=== PATIENT | female | born 1955 | race Caucasian/White ===

== ENCOUNTER 2017-04-09 21:53 | Inpatient (IN) | payer BC, OTHER ==
[~2017-04-09] VITALS: Ht 165.1 cm; Wt 99.8 kg
[2017-04-09] MEDS ORDERED: ONDANSETRON ODT 4 MG TAB.RAPDIS PO ONE (22:30)
[2017-04-09] MEDS ORDERED: MORPHINE SULFATE 2 MG/ML DISP.SYRIN. IM ONE (22:45)
[2017-04-09] MEDS ORDERED: CONTRAST GIVEN MC PRN (22:45)
[2017-04-09] MEDS ORDERED: IV NORMAL SALINE 1,000ML 1,000 ML IV ONE (23:00)
[2017-04-09] MEDS ORDERED: IOHEXOL 300 MG/ML 75 ML VIAL. IV ONE (23:00)
[2017-04-09] MEDS ORDERED: MORPHINE SULFATE 2 MG/ML DISP.SYRIN. IV ONE (23:00)
--- NOTE | 2017-04-09 23:48 | PHYS DOC ---
Adult General Chief Complaint Chief Complaint: ABDOMINAL PAIN HPI HPI 61-year-old female with a history of abdominal aortic aneurysm treated surgically, also with bowel resection history, multiple subsequent bowel obstructions. Patient now presents to the emergency department complaining of pain and nausea. She thinks she may have another bowel obstruction. Onset of pain was this evening. She has no fevers chills sweats or shaking chills. Patient always has loose stool but she feels she has decreased stool output this evening. Her pain is in the mid abdomen this report some mild distention .no hematemesis and no black or bloody stool. Review of Systems Review of Systems Constitutional: Denies fever or chills [] Eyes: Denies change in visual acuity, redness, or eye pain [] HENT: Denies nasal congestion or sore throat [] Respiratory: Denies cough or shortness of breath [] Cardiovascular: No additional information not addressed in HPI [] GI: Denies abdominal pain, nausea, vomiting, bloody stools or diarrhea [] : Denies dysuria or hematuria [] Musculoskeletal: Denies back pain or joint pain [] Integument: Denies rash or skin lesions [] Neurologic: Denies headache, focal weakness or sensory changes [] Endocrine: Denies polyuria or polydipsia [] Current Medications Current Medications Current Medications Medications (Trade) Dose Ordered Sig/Orlin Start Time Stop Time Status Last Admin Dose Admin Info (Do NOT chart on this entry -- for MONITORING) 1 each PRN DAILY PRN 04/09/17 22:45 04/11/17 22:44 Iohexol (Omnipaque 300 Mg/ml) 75 ml 1X ONCE 04/09/17 23:00 04/09/17 23:01 DC Morphine Sulfate (Morphine 2mg Syringe) 2 mg 1X ONCE 04/09/17 22:45 04/09/17 22:57 DC 04/09/17 22:46 2 MG Morphine Sulfate (Morphine 4mg Syringe) 4 mg 1X ONCE 04/10/17 00:00 04/10/17 00:01 Ondansetron HCl (Zofran Odt) 4 mg 1X ONCE 04/09/17 22:30 04/09/17 22:43 DC 04/09/17 22:37 4 MG Sodium Chloride 1,000 ml @ 1,000 mls/hr 1X ONCE 04/09/17 23:00 04/09/17 23:59 Allergies Allergies Allergies Coded Allergies Type Severity Reaction Last Updated Verified No Known Drug Allergies 04/09/17 No Physical Exam Physical Exam Older middle-aged female mildly uncomfortable appearing but in no acute distress supple neck clear lungs regular rate and rhythm no tachycardia mild diffuse mid abdominal tenderness without guarding or rebound no mass or megaly appreciated. Unremarkable bowel sounds. Normal extremities with no tenderness or asymmetry. No CVA tenderness Constitutional: Well developed, well nourished, non-toxic appearance. [] HENT: Normocephalic, atraumatic, bilateral external ears normal, oropharynx moist, no oral exudates, nose normal. [] Eyes: PERRLA, EOMI, conjunctiva normal, no discharge. [] Neck: Normal range of motion, no tenderness, supple, no stridor. [] Cardiovascular:Heart rate regular rhythm, no murmur [] Lungs & Thorax: Bilateral breath sounds clear to auscultation [] Abdomen: As above Skin: Warm, dry, no erythema, no rash. [] Back: No tenderness, no CVA tenderness. [] Extremities: No tenderness, no cyanosis, no clubbing, ROM intact, no edema. [] Neurologic: Alert and oriented X 3, normal motor function, normal sensory function, no focal deficits noted. [] Psychologic: Affect normal, judgement normal, mood normal. [] Current Patient Data Vital Signs Vital Signs Date Time Temp Pulse Resp B/P (MAP) Pulse Ox O2 Delivery O2 Flow Rate FiO2 04/09/17 22:46 22 98 Room Air EKG EKG [] Radiology/Procedures Radiology/Procedures CT of the abdomen and pelvis pending[] Course & Med Decision Making Course & Med Decision Making Pertinent Labs and Imaging studies reviewed. (See chart for details) Signs and symptoms consistent with possible bowel obstruction in a patient with a history of multiple prior episodes. Patient hemodynamically stable. Analgesia administered. Patient very difficult IV stick and multiple attempts were made. CT abdomen and pelvis will be done without contrast well continuing to obtain access. If unsuccessful will place right humeral head intraosseous line. 20-gauge IV obtained in left before meals which flushed well without infiltration. Labs noncontrast CT results pending analgesia administered patient clinically stable. CT result obtained 20 minutes after midnight with diagnosis of small bowel obstruction. Case and details promptly discussed with patient's primary care doctor, Dr. Thacker. He is aware of history and findings and requests admission to his service here at [facility]'s inpatient status. He will follow patient clinically overnight and determine whether acute surgical intervention is indicated and orchestrate transfer for surgical consultation and treatment at the appropriate time if necessary. [] Dragon Disclaimer Dragon Disclaimer This chart was dictated in whole or in part using Voice Recognition software in a busy, high-work load, and often noisy Emergency Department environment. It may contain unintended and wholly unrecognized errors or omissions. Departure Departure: Impression: Primary Impression: Abdominal pain Additional Impression: Small bowel obstruction Disposition: ADMITTED INPATIENT Condition: STABLE Referrals: CHANTE THACKER MD (PCP) Problem Qualifiers MARLON JO MD Apr 09, 2017 23:48
--- NOTE | 2017-04-09 23:50 | RAD ---
PQRS Compliance Statement: One or more of the following individualized dose reduction techniques were utilized for this examination: 1. Automated exposure control 2. Adjustment of the mA and/or kV according to patient size 3. Use of iterative reconstruction technique CT ABDOMEN PELVIS WO CONTRAST Clinical Indication: Abdomen pain, nausea today. Hx: Appendectomy, aortic abdominal aneurysm rupture and repair in 1996, multiple bowel obstructions with last in 2006. Comparison: None. Technique: Helical CT imaging of the abdomen and pelvis is performed without IV or oral contrast. Findings: Evaluation of solid organs and bowel is limited without oral and IV contrast, decreasing sensitivity for detection of pathology. Minimal scarring or atelectasis in the lower lobes. Cardiac size normal. Cholelithiasis. Liver, spleen, pancreas, adrenal glands, abdominal aorta, and kidneys are normal. Stomach unremarkable. The distal colon is decompressed. There is moderate colon diverticulosis. No colon wall thickening is seen. Appendix not identified, no secondary signs of appendicitis. There is small bowel anastomosis in the right lower abdomen. There are mildly dilated fluid-filled small bowel loops in this region. A point of transition may be seen just superior to the bladder on coronal image 52. Small bowel just proximal is fecalized. No abdominal adenopathy or free fluid. Urinary bladder is normal. Uterus surgically absent. Mild pelvic free fluid, abnormal. There is degenerative spondylosis of L4/L5. IMPRESSION: 1. Mid small bowel obstruction. 2. Mild pelvic free fluid, abnormal. 3. Cholelithiasis. 4. Moderate colon diverticulosis without evidence of diverticulitis. Electronically signed by: Phuc Black MD (04/09/2017 11:47 PM) [facility]
[2017-04-10] MEDS ORDERED: MORPHINE SULFATE 4 MG/ML DISP.SYRIN. IM ONE
[2017-04-10 00:05] LABS: BASO # 0.1 x10^3/uL (0.0-0.2); BASO % 1 % (0-3); EOS # 0.2 x10^3/uL (0.0-0.7); EOS % 2 % (0-3); HEMATOCRIT 32.7 % (36.0-47.0); HEMOGLOBIN 10.5 g/dL (12.0-15.5); LYMPH # 1.6 x10^3/uL (1.0-4.8); LYMPH % 14 % (24-48); MEAN CORPUSCULAR HEMOGLOBIN 25 pg (25-35); MEAN CORPUSCULAR HGB CONC 32 g/dL (31-37); MEAN CORPUSCULAR VOLUME 79 fL (79-100); MONO % 9 % (0-9); NEUT # 8.2 x10^3uL (1.8-7.7); NEUT % 74 % (31-73); PLATELET COUNT 283 x10^3/uL (140-400); RED BLOOD COUNT 4.11 x10^6/uL (3.50-5.40); RED CELL DISTRIBUTION WIDTH 17.2 % (11.5-14.5); WHITE BLOOD COUNT 11.1 x10^3/uL (4.0-11.0)
[2017-04-10] MEDS ORDERED: ONDANSETRON ODT 4 MG TAB.RAPDIS PO ONE (00:15)
[2017-04-10 00:17] LABS: ALBUMIN 3.5 g/dL (3.4-5.0); POTASSIUM 3.9 mmol/L (3.5-5.1); TOTAL BILIRUBIN 0.3 mg/dL (0.2-1.0); TOTAL PROTEIN 6.9 g/dL (6.4-8.2)
[2017-04-10] MEDS ORDERED: IV NORMAL SALINE 1,000ML 1,000 ML IV ONE ×2 (00:30)
[2017-04-10] MEDS ORDERED: ONDANSETRON PF 4 MG/2 ML VIAL. IV PRN (00:45)
[2017-04-10] MEDS ORDERED: MORPHINE SULFATE 2 MG/ML DISP.SYRIN. IV ONE (01:00)
[2017-04-10 01:45] VITALS: BP 126/73
[2017-04-10] MEDS ORDERED: MINO100C PO (01:45)
[2017-04-10] MEDS ORDERED: MELO15TA23 PO (01:45)
[2017-04-10] MEDS ORDERED: OLME1TAB21 PO (01:45)
[2017-04-10] MEDS ORDERED: VALA500T5 PO (01:45)
[2017-04-10] MEDS ORDERED: ASPI-630 PO (01:45)
[2017-04-10] MEDS ORDERED: APRE30TA2 PO (01:45)
[2017-04-10] MEDS ORDERED: CITA20TA5 PO (01:45)
[2017-04-10] MEDS ORDERED: TRAZ-90 PO (01:45)
[2017-04-10] MEDS ORDERED: PROMETHAZINE 25 MG/ML VIAL IV ONE (02:03)
[2017-04-10] MEDS: PROMETHAZINE 12.5 MG in IV NORMAL SALINE 50ML 50 ML IV PRN ×4 (02:11→21:55)
[2017-04-10 02:13] LABS: BACTERIA,URINE 0 /HPF (0-FEW); BILIRUBIN,URINE NEG (NEG); CLARITY,URINE CLEAR; COLOR,URINE YELLOW; GLUCOSE,URINE NEG (NEG); NITRITE,URINE NEG (NEG); RBC,URINE 0 /HPF (0-2); SQUAMOUS EPITHELIAL CELL,UR OCC /LPF; UROBILINOGEN,URINE 0.2 mg/dL (0.2 mg/dL); WBC,URINE OCC /HPF (0-4)
[2017-04-10] MEDS ORDERED: PNEUMOCOCCAL VAX SCREEN. MC ONE (03:00)
[2017-04-10] MEDS: IV NORMAL SALINE 1,000ML 1,000 ML IV SCH ×3 (04:33→16:39)
[2017-04-10 05:07] VITALS: BP 100/64
[2017-04-10 06:45] LABS: BASO % 0 % (0-3); EOS # 0.2 x10^3/uL (0.0-0.7); EOS % 2 % (0-3); HEMATOCRIT 29.5 % (36.0-47.0); HEMOGLOBIN 9.5 g/dL (12.0-15.5); LYMPH # 1.6 x10^3/uL (1.0-4.8); LYMPH % 19 % (24-48); MEAN CORPUSCULAR HEMOGLOBIN 26 pg (25-35); MEAN CORPUSCULAR HGB CONC 32 g/dL (31-37); MEAN CORPUSCULAR VOLUME 80 fL (79-100); MONO # 0.8 x10^3/uL (0.0-1.1); MONO % 9 % (0-9); NEUT % 70 % (31-73); PLATELET COUNT 243 x10^3/uL (140-400); RED BLOOD COUNT 3.69 x10^6/uL (3.50-5.40); RED CELL DISTRIBUTION WIDTH 17.5 % (11.5-14.5); WHITE BLOOD COUNT 8.6 x10^3/uL (4.0-11.0)
[2017-04-10 07:00] LABS: ALBUMIN 2.8 g/dL (3.4-5.0); CALCIUM 8.2 mg/dL (8.5-10.1); CREATININE 0.9 mg/dL (0.6-1.0); GFR 63.2; POTASSIUM 4.3 mmol/L (3.5-5.1); TOTAL BILIRUBIN 0.3 mg/dL (0.2-1.0); TOTAL PROTEIN 5.7 g/dL (6.4-8.2)
[2017-04-10] MEDS: MORPHINE SULFATE 2 MG/ML DISP.SYRIN. IV PRN ×3 (08:37→21:55)
[2017-04-10] MEDS ORDERED: PNEUMOC CONJ VACC 23-VALENT 0.5 ML VIAL. VAX IM ONE (09:00)
[2017-04-10] MEDS ORDERED: ENOXAPARIN 30 MG/0.3 ML DISP.SYRIN. SQ SCH (10:00)
[2017-04-10] MEDS ORDERED: GLYCERIN ADULT 1 SUPP.RECT. PR ONE (10:30)
[2017-04-10 10:55] VITALS: BP 95/57
--- NOTE | 2017-04-10 14:39 | HP ---
ADMIT DATE: 04/10/2017 HISTORY OF PRESENT ILLNESS: The patient came in with history of abdominal aortic aneurysm treated surgically; however, also has had bowel resection, history of multiple subsequent bowel obstructions, presents with severe pain and nausea with another bowel obstruction per CAT scan. See results there. The patient also denies any fever, chills or shakiness at the present time. She has not had a bowel movement but she did have a small one yesterday apparently. No blood in the stools. The patient was admitted for further evaluation of her small-bowel obstruction, not responsive to outpatient therapy. PAST MEDICAL HISTORY: Pneumonia, diverticulitis, frequent small bowel obstructions, Crohn's disease, abdominal surgeries for aortic aneurysm and possible rupture, bowel surgery, multiple bowel resections, abdominal pain. Has history of oophorectomy, salpingectomy and anemia. IMMUNIZATIONS: Up to date. She has also had an appendectomy. FAMILY HISTORY: Positive for father with skin cancer, diverticulitis, cardiac disorders. Mother with lung cancer. ALLERGIES: The patient has no known allergies herself. HOME MEDICATIONS: Include Otezla for arthritis, aspirin 81 mg, Celexa 20 mg, meloxicam 15, minocycline 100 mg daily, Benicar HCTZ, trazodone 100 mg, Valtrex 500 mg at bedtime. SOCIAL HISTORY: Denies smoking, alcohol or drug use. REVIEW OF SYSTEMS: The patient denies any recent weight loss, weight gain, change in bowel habits. He does have abdominal pain. Denies shortness of breath or chest pain. Neurologically, the patient is stable there. PHYSICAL EXAMINATION: GENERAL: A pleasant white female in moderate amount of pain. VITAL SIGNS: Blood pressure is 95/57, respiratory rate 20, pulse 67, afebrile. HEENT: The patient's head was atraumatic, normocephalic. Eyes: PERRLA without jaundice. Mouth and throat were normal. NECK: Supple, without JVD or thyromegaly. LUNGS: Diminished, but clear. CARDIOVASCULAR: Regular sinus rhythm. ABDOMEN: Soft and some areas firm and others decreased bowel sounds. Some guarding in the left mid upper quadrant areas. Stool hemoccult negative. EXTREMITIES: No clubbing, cyanosis, edema. NEUROLOGIC: Alert and oriented x 3. Speech fluent, spontaneous, appropriate. LABORATORY DATA: White count 11, 10 and 32. The patient's sodium, potassium, BUN and creatinine all within normal range as well as her liver enzymes protein low at 2.8. Urine, unremarkable. IMAGING STUDIES: CT scan of the abdomen demonstrates a mild small-bowel obstruction, cholelithiasis. IMPRESSION: Small-bowel obstruction, history of recurrent problems, cholelithiasis, abdominal pain. PLAN: The patient will be admitted, placed on bowel rest, IV fluid, hydration and make further evaluation on her as indicated. CHANTE MOSS MD DR: ELAINE/dane JOB#: [id number] / [id number]
[2017-04-10 15:07] VITALS: BP 97/62
[2017-04-10] MEDS: ENOXAPARIN 40 MG/0.4 ML DISP.SYRIN. SQ SCH (16:00)
--- NOTE | 2017-04-10 16:45 | RAD ---
Abdomen, 2 views, 04/10/2017: History: Bowel obstruction There is a moderate amount of gas in large and small bowel extending down to the level of the rectum. Several small air-fluid levels are noted in the left midabdomen. No free air is evident the abdomen. There is no evidence of organomegaly. A right upper quadrant calcification is probably a gallstone. The lung bases are clear. IMPRESSION: 1. Cholelithiasis. 2. A couple of small air-fluid levels in the left midabdomen may reflect a mild residual partial small bowel obstruction.
[2017-04-10 20:47] VITALS: BP 102/61
[2017-04-10 23:00] VITALS: BP 153/77
[2017-04-11] VITALS (7 sets, daily range): BP systolic 106–125; BP diastolic 64–78
[2017-04-11] MEDS: IV NORMAL SALINE 1,000ML 1,000 ML IV SCH (00:16)
[2017-04-11] MEDS ORDERED: MORPHINE SULFATE 2 MG/ML DISP.SYRIN. ONE ×2 (03:44→11:19)
[2017-04-11] MEDS: PROMETHAZINE 12.5 MG in IV NORMAL SALINE 50ML 50 ML IV PRN ×2 (03:50→11:35)
[2017-04-11] MEDS: MORPHINE SULFATE 2 MG/ML DISP.SYRIN. IV PRN ×2 (03:51→11:19)
[2017-04-11] MEDS ORDERED: PNEUMOC CONJ VACC 23-VALENT 0.5 ML VIAL. VAX IM ONE (09:00)
[2017-04-11 09:04] LABS: POTASSIUM 3.9 mmol/L (3.5-5.1)
[2017-04-11] MEDS ORDERED: BISACODYL 10 MG SUPP.RECT PR ONE (11:00)
[2017-04-11] MEDS ORDERED: BISACODYL 10 MG SUPP.RECT ONE (11:29)
[2017-04-11] MEDS: ENOXAPARIN 40 MG/0.4 ML DISP.SYRIN. SQ SCH (11:40)
[2017-04-11] MEDS: traZODone 100 MG TABLET. PO SCH (20:13)
[2017-04-11] MEDS: CITALOPRAM 20 MG TABLET. PO SCH (20:13)
[2017-04-11] MEDS: valACYclovir 500 MG TABLET. PO SCH (20:13)
[2017-04-11] MEDS: HYDROcodone/APAP 5/325MG 1 TAB TABLET PO PRN (20:29)
[2017-04-11] MEDS ORDERED: HYDROcodone/APAP 5/325MG 1 TAB TABLET PO PRN (20:30)
[2017-04-11 20:53] LABS: BASO % 1 % (0-3); EOS # 0.3 x10^3/uL (0.0-0.7); EOS % 4 % (0-3); HEMATOCRIT 26.9 % (36.0-47.0); HEMOGLOBIN 8.8 g/dL (12.0-15.5); LYMPH # 1.5 x10^3/uL (1.0-4.8); LYMPH % 22 % (24-48); MEAN CORPUSCULAR HEMOGLOBIN 26 pg (25-35); MEAN CORPUSCULAR HGB CONC 33 g/dL (31-37); MEAN CORPUSCULAR VOLUME 79 fL (79-100); MONO # 0.6 x10^3/uL (0.0-1.1); MONO % 9 % (0-9); NEUT # 4.4 x10^3uL (1.8-7.7); NEUT % 64 % (31-73); PLATELET COUNT 230 x10^3/uL (140-400); RED CELL DISTRIBUTION WIDTH 17.3 % (11.5-14.5); WHITE BLOOD COUNT 6.9 x10^3/uL (4.0-11.0)
[2017-04-11] MEDS: APREMILAST PO SCH (21:00)
[2017-04-11] MEDS ORDERED: traZODone 100 MG TABLET. PO SCH (21:00)
[2017-04-12] MEDS: HYDROcodone/APAP 5/325MG 1 TAB TABLET PO PRN ×4 (02:26→22:10)
[2017-04-12 05:40] VITALS: BP 97/65
--- NOTE | 2017-04-12 06:56 | PN ---
DATE: 04/11/2017 SUBJECTIVE: A 61-year-old female with small-bowel obstruction. She has had multiple bouts, although she feels a little better this morning. X-rays still show the presence of a partial small bowel obstruction. The patient otherwise does feel better. OBJECTIVE: VITAL SIGNS: Blood pressure 110/60, respirations 16, pulse 78, running a low-grade temp of 99.2. GENERAL: Otherwise, the patient is alert and oriented. LUNGS: Diminished, but clear. CARDIOVASCULAR: Stable. ABDOMEN: Soft, not as firm as it was yesterday. Bowel sounds markedly diminished. They are present in certain areas of the abdomen. We will try use another laxative on her as the glycerin really did not do much for her . In any case, she will be continued to be monitored carefully on that. IMPRESSION: Small-bowel obstruction, history of adhesions, abdominal pain, cholelithiasis, anemia of chronic disease. PLAN: Continue rest, may give her clear liquids. Physical and occupational therapy to mobilize more and treatment will hopefully get the bowels go on here. CHANTE MOSS MD DR: ELAINE/dane JOB#: [id number] / [id number]
[2017-04-12] MEDS ORDERED: PNEUMOC CONJ VACC 23-VALENT 0.5 ML VIAL. VAX IM ONE (09:00)
[2017-04-12] MEDS: APREMILAST PO SCH ×2 (09:00→21:00)
[2017-04-12] MEDS: ENOXAPARIN 40 MG/0.4 ML DISP.SYRIN. SQ SCH (09:01)
[2017-04-12 10:44] VITALS: BP 114/72
[2017-04-12 14:27] VITALS: BP 126/80
[2017-04-12] MEDS: BISACODYL 10 MG SUPP.RECT PR PRN (15:18)
[2017-04-12 19:37] VITALS: BP 96/53
[2017-04-12] MEDS: CITALOPRAM 20 MG TABLET. PO SCH (19:52)
[2017-04-12] MEDS: traZODone 100 MG TABLET. PO SCH (19:53)
[2017-04-12] MEDS: valACYclovir 500 MG TABLET. PO SCH (19:53)
[2017-04-12] MEDS: DOCUSATE SODIUM 100 MG CAPSULE PO PRN (22:10)
[2017-04-12 22:46] VITALS: BP 140/74
[2017-04-13] MEDS ORDERED: PROMETHAZINE 25 MG/ML VIAL IV ONE ×2 (02:08→02:17)
[2017-04-13] MEDS: PROMETHAZINE 12.5 MG in IV NORMAL SALINE 50ML 50 ML IV PRN (02:18)
[2017-04-13] MEDS: HYDROcodone/APAP 5/325MG 1 TAB TABLET PO PRN ×2 (03:18→09:38)
[2017-04-13 05:09] VITALS: BP 103/64
--- NOTE | 2017-04-13 06:47 | PN ---
DATE: 04/12/2017 SUBJECTIVE: A 61-year-old female in with ____ small bowel obstruction. She says she is doing a little better this morning, had some crackers yesterday, still not having any type of bowel movement. Encouraged her to continue to move around. She still has tenderness in her abdomen and her joints. OBJECTIVE: VITAL SIGNS: Blood pressure approximately 100/65, respiratory rate 16, pulse 65, afebrile. GENERAL: The patient otherwise does sleep better with the trazodone last night. In any case, the patient's; LUNGS: Clear. CARDIOVASCULAR: Stable. ABDOMEN: Soft, still some tenderness and hardness on the left side of her abdomen. We will give another suppository. Otherwise bowel sounds are nearly absent, very very faint if at all. EXTREMITIES: No clubbing, cyanosis or edema. NEUROLOGIC: Intact. IMPRESSION: Small-bowel obstruction, probably from adhesions. PLAN: Continue to monitor. Encouraged her to move around and stay as much n.p.o. as possible. CHANTE MOSS MD DR: ELAINE/dane JOB#: [id number] / [id number]
[2017-04-13] MEDS: APREMILAST PO SCH (09:00)
[2017-04-13] MEDS: ENOXAPARIN 40 MG/0.4 ML DISP.SYRIN. SQ SCH (09:29)
[2017-04-13] MEDS: BISACODYL 10 MG SUPP.RECT PR PRN (09:29)
[2017-04-13] MEDS: DOCUSATE SODIUM 100 MG CAPSULE PO PRN (09:38)
[2017-04-13 11:09] VITALS: BP 134/77
[2017-04-13] MEDS ORDERED: SODIUM PHOSPHATES 19/7GM 133 ML ENEMA. PR PRN (12:00)
[2017-04-13 15:25] VITALS: BP 145/84
--- NOTE | 2017-04-16 20:35 | DS ---
DATE OF DISCHARGE: 04/13/2017 HOSPITAL COURSE: A 61-year-old female came in with abdominal pain, initially seen in the Emergency Room, came in with a small-bowel obstruction. She has had multiple surgeries done on her abdomen in the past and CAT scan showed a mild obstructive problem. She had an abdominal aneurysm repaired, probably led to adhesions and then multiple bowel resections. The patient otherwise was admitted and placed on IV fluids, hydration and pain management. She made good progress. White count came down from 11 down to 6, hemoglobin also came down from 10 to 8, could have been dehydrated as well. I will be worked up further as an outpatient as far as her anemia goes. In any case, the patient made good progress during the rest of her hospitalization. She was advanced on clear liquids and then full liquids and made good progress overall. Her x-rays demonstrated air fluid levels consistent with small-bowel obstruction. IMPRESSION: Overall small-bowel obstruction, anemia of chronic disease, history of adhesions, history of aortic aneurysm. DISCHARGE INSTRUCTIONS: The patient to be discharged on a low-fiber diet. Decreased activity, return to clinic in 7-10 days for followup or sooner as needed. She will follow up on the anemia or sooner of course. She was given my phone number to call if she has any further problems that need to be addressed prior to her return to the clinic. CHANTE MOSS MD DR: ELAINE/dane JOB#: [id number] / [id number]
== END 2017-04-13 18:00 | disposition home or self-care (01) | DRG 389 ==
LOC: ER 21:53 → 1 SOUTH 04-10 00:25
PROVIDERS: ADMIT Family Medicine; ATTEND Family Medicine
DX: K56.600 Partial intestinal obstruction, unspecified as to cause (principal); K50.90 Crohn's disease, unspecified, without complications; K80.20 Calculus of gallbladder without cholecystitis without obstruction; E86.0 Dehydration; D63.8 Anemia in other chronic diseases classified elsewhere; Z80.1 Family history of malignant neoplasm of trachea, bronchus and lung; Z80.8 Family history of malignant neoplasm of other organs or systems; Z86.79 Personal history of other diseases of the circulatory system; Z87.01 Personal history of pneumonia (recurrent); Z90.721 Acquired absence of ovaries, unilateral; Z90.49 Acquired absence of other specified parts of digestive tract
CPT/HCPCS: 36415; 74020; 74176; 80048; 80053; 81001; 83690; 85025; 90732; 96361; 96372; 96374; J1650; J2270; J2550; Q0162; 99285-25; J7030

== ENCOUNTER → 2018-04-15 | Outpatient (CLI) | payer BC, OTHER ==
[~2018-04-15] MED LIST: APRE30TA2 PO; ASPI-630 PO; CITA20TA6 PO; MELO15TA23 PO; MINO100C PO; OLME1TAB21 PO; TRAZ-86 PO; VALA500T5 PO
--- NOTE | 2018-04-15 18:03 | RAD ---
EXAM: Head CT without contrast. HISTORY: Hypertensive urgency. Headache. TECHNIQUE: Computed tomographic images of the head were obtained without contrast. *One or more of the following individualized dose reduction techniques were utilized for this examination: 1. Automated exposure control. 2. Adjustment of the mA and/or kV according to patient size. 3. Use of iterative reconstruction technique. COMPARISON: None. FINDINGS: There is no acute or subacute extra-axial or intraparenchymal hemorrhage. There is no mass effect or midline shift. There is no hydrocephalus. There is a focus of hyperdensity within the right putamen, likely due to chronic lacunar infarct. There may also be a small chronic infarct within the left putamen. The visualized portions of the orbits, paranasal sinuses and mastoid air cells are unremarkable. No suspicious calvarial lesion is seen. IMPRESSION: 1. No acute intracranial finding. 2. Suspected chronic lacunar infarct within the right putamen. There may also be a chronic lacunar infarct within the left putamen. Note is made that MRI is more sensitive for acute infarction. Electronically signed by: Sara Mendieta MD (04/15/2018 6:00 PM) [facility]
== END | disposition home or self-care (01) ==
LOC: RAD 17:23
PROVIDERS: ATTEND Family Medicine
DX: I16.0 Hypertensive urgency (principal)
CPT/HCPCS: 70450